=== PATIENT | male | born 2000 | race African-American/Black ===

== ENCOUNTER 2021-11-12 08:00 | Outpatient (CLI) | payer MEDICAID ==
[2021-11-12 21:37] LABS: CHLAMYDIA TRACHOMATIS DNA NEGATIVE (NEGATIVE)
[2021-11-12 21:52] LABS: NEISSERIA GONORRHOEAE DNA POSITIVE (NEGATIVE)
== END 2021-11-12 23:59 ==
LOC: LAB.N 08:00
PROVIDERS: ATTEND Family Medicine
DX: Z11.3 Encounter for screening for infections with a predominantly sexual mode of transmission (principal)
CPT/HCPCS: 87086; 87491; 87591; 87661